=== PATIENT | female | born 1960 | race Caucasian/White ===

== ENCOUNTER 2023-03-13 07:45 | Day surgery (SDC) | payer BC ==
[2023-03-11 12:25] LABS: CREATININE 0.8 mg/dL (0.5-1.5); POTASSIUM 4.7 mmol/L (3.5-5.1)
[2023-03-11 12:35] LABS: BASOPHILS # (AUTO) 0.04 K/uL (0.00-0.20); BASOPHILS % (AUTO) 0.5 % (0.0-5.0); EOSINOPHILS # (AUTO) 0.22 K/uL (0.00-0.70); HEMATOCRIT 40.2 % (36-48); IMMATURE GRANULOCYTE ABSOLUTE 0.02 K/uL (0-1); LYMPHOCYTES # (AUTO) 2.2 K/uL (1.0-4.8); LYMPHOCYTES % (AUTO) 30.1 % (21.0-51.0); MEAN CORPUSCULAR HEMOGLOBIN 28.8 pg (27.0-33.0); MEAN CORPUSCULAR HGB CONC 33.8 g/dL (32.0-36.0); MEAN CORPUSCULAR VOLUME 85.2 fL (79-99); MONOCYTES # (AUTO) 0.7 K/uL (0.1-1.0); MONOCYTES % (AUTO) 9.5 % (3.0-13.0); NEUTROPHILS # (AUTO) 4.1 K/uL (1.8-7.7); NEUTROPHILS % (AUTO) 56.6 % (40.0-77.0); PLATELET COUNT (AUTO) 251 K/uL (130-400); RED BLOOD CELL COUNT(AUTO) 4.72 MIL/uL (4.00-5.50); RED CELL DISTRIBUTION WIDTH 12.4 % (11.0-15.5); WHITE BLOOD COUNT (AUTO) 7.3 K/uL (4.8-10.8)
[2023-03-11 13:28] VITALS: BP 137/81; PULSE 79; RESP 15
[~2023-03-13] VITALS: Ht 160 cm; Wt 72.0 kg
[2023-03-13] VITALS (18 sets, daily range): BP systolic 104–117; BP diastolic 54–82; PULSE 71–84; RESP 14–17
[~2023-03-13 07:45] MED LIST: CETI-89 PO; FEXO180T94 PO; IBUP-2077 PO; METO-408 PO; MONT-39 PO; ROSU20TA73 PO; SENN-141 PO; TIRZ12.5 SQ; [UNRECOGNIZED DRUG - OTHER]; lutein PO; vitamin d3 PO
[2023-03-13] MEDS ORDERED: ZOSYN 3.375GM+NS 50ML 50 ML ONE (08:04)
[2023-03-13] MEDS ORDERED: 0.9%NACL 1000ML 1,000 ML IV ONE (08:08)
[2023-03-13] MEDS ORDERED: FENTANYL CITRATE PF 50 MCG/1 ML 2ML VIAL ONE (09:16)
[2023-03-13] MEDS ORDERED: ONDANSETRON 4MG INJ ONE (09:16)
[2023-03-13] MEDS ORDERED: PROPOFOL 10 MG/ML 20ML VIAL IV ONE (09:16)
[2023-03-13] MEDS ORDERED: MIDAZOLAM HCL 1 MG/ML 2ML VIAL ONE (09:16)
[2023-03-13] MEDS ORDERED: ROCURONIUM 10MG/1ML SYR 10 MG/ML ML ONE (09:25)
[2023-03-13] MEDS ORDERED: EPHEDRINE SULFATE 50 MG/ML AMPULE ONE (09:36)
== END 2023-03-13 11:55 | disposition home or self-care (01) ==
LOC: DAH 07:45
PROVIDERS: ATTEND Urology
DX: N20.0 Calculus of kidney (principal); E11.9 Type 2 diabetes mellitus without complications; J45.909 Unspecified asthma, uncomplicated; Z79.899 Other long term (current) drug therapy; Z79.01 Long term (current) use of anticoagulants; Z98.890 Other specified postprocedural states; Z87.440 Personal history of urinary (tract) infections
CPT/HCPCS: 80048; 85025; 36415; 50590; 82948 ×2; A6260; A4663; J7120; J3010; J7030; J3490; J2250; J2704; J2405; J2543; A4215; A4223; A4222; A4221

== ENCOUNTER → 2023-09-25 | Outpatient (CLI) | payer BC ==
[~2023-09-25] MED LIST changes: -[UNRECOGNIZED DRUG - OTHER]
== END | disposition home or self-care (01) ==
LOC: SHCH 10:36
PROVIDERS: ATTEND Internal Medicine Cardiovascular Disease
DX: I08.1 Rheumatic disorders of both mitral and tricuspid valves (principal); I48.0 Paroxysmal atrial fibrillation; I47.0 Re-entry ventricular arrhythmia; I11.9 Hypertensive heart disease without heart failure; R00.2 Palpitations; E11.9 Type 2 diabetes mellitus without complications; E78.5 Hyperlipidemia, unspecified
CPT/HCPCS: 93306

== ENCOUNTER 2024-02-09 11:35 | Emergency (ER) | payer MEDICARE, BC ==
[~2024-02-09] VITALS: Ht 157.5 cm; Wt 68.0 kg
[~2024-02-09 11:35] MED LIST changes: -ROSU20TA73 PO; +ROSU20TA98 PO
[2024-02-09 12:04] LABS: BASOPHILS # (AUTO) 0.03 K/uL (0.00-0.20); BASOPHILS % (AUTO) 0.2 % (0.0-5.0); EOSINOPHILS # (AUTO) 0.06 K/uL (0.00-0.70); EOSINOPHILS % (AUTO) 0.4 % (0.0-8.0); HEMATOCRIT 38.1 % (36-48); IMMATURE GRANULOCYTE ABSOLUTE 0.06 K/uL (0-1); LYMPHOCYTES # (AUTO) 1.3 K/uL (1.0-4.8); LYMPHOCYTES % (AUTO) 8.5 % (21.0-51.0); MEAN CORPUSCULAR HEMOGLOBIN 28.2 pg (27.0-33.0); MEAN CORPUSCULAR HGB CONC 34.1 g/dL (32.0-36.0); MEAN CORPUSCULAR VOLUME 82.6 fL (79-99); MONOCYTES # (AUTO) 0.6 K/uL (0.1-1.0); MONOCYTES % (AUTO) 4.1 % (3.0-13.0); NEUTROPHILS # (AUTO) 13.4 K/uL (1.8-7.7); NEUTROPHILS % (AUTO) 86.4 % (40.0-77.0); PLATELET COUNT (AUTO) 306 K/uL (130-400); RED BLOOD CELL COUNT(AUTO) 4.61 MIL/uL (4.00-5.50); RED CELL DISTRIBUTION WIDTH 12.8 % (11.0-15.5); WHITE BLOOD COUNT (AUTO) 15.5 K/uL (4.8-10.8)
[2024-02-09 12:19] LABS: CREATININE 0.9 mg/dL (0.5-1.0)
[2024-02-09 12:21] LABS: APPEARANCE,URINE CLOUDY (CLEAR); BILIRUBIN,URINE NEGATIVE (NEGATIVE); COLOR,URINE YELLOW (YELLOW); GLUCOSE, URINE (UA) NEGATIVE (NEGATIVE); KETONES,URINE NEGATIVE (NEGATIVE); LEUKOCYTE ESTERASE ,URINE 500 Leu/uL (NEGATIVE); NITRATE,URINE NEGATIVE (NEGATIVE); OCCULT BLOOD,URINE LARGE (NEGATIVE); PROTEIN,URINE 30 mg/dL (NEGATIVE); UROBILINOGEN,URINE 0.2 mg/dL (0.2-1.0)
[2024-02-09] MEDS: ketOROlac 10 MG TABLET PO SCH (12:30)
[2024-02-09] MEDS: 0.9%NACL 1000ML 501 ML IV ONE (12:50)
[2024-02-09] MEDS: ketOROlac 30MG VIAL (30MG/ML) IVP ONE (12:51)
[2024-02-09 12:57] LABS: BACTERIA,URINE FEW /HPF (None Seen); CALCIUM OXALATE CRYSTALS,UR RARE /LPF (None Seen); MUCUS,URINE RARE LPF (None Seen); RBC,URINE TNTC /HPF (0-1); SQUAMOUS EPITHELIAL CELL,UR RARE /HPF (0-2); WBC,URINE 51-100 /HPF (0-1)
[2024-02-09] MEDS: ceFEPime HCL 1 GM VIAL IV ONE (15:01)
[2024-02-09] MEDS ORDERED: TAMS-1 PO (16:37)
[2024-02-09] MEDS ORDERED: AMOX1TAB16 PO (16:37)
[2024-02-09] MEDS: ketOROlac 10 MG TABLET PO ONE (16:48)
[2024-02-09] MEDS ORDERED: IBUP-2070 PO (16:51)
[2024-02-09 16:56] VITALS: BP 126/70; PULSE 92; RESP 16; TEMP 98.6; O2SAT 98
[2024-02-09] MEDS ORDERED: KETO10TA2 PO (17:33)
== END 2024-02-09 17:52 | disposition home or self-care (01) ==
LOC: EDH 11:35
DX: N39.0 Urinary tract infection, site not specified (principal); N20.0 Calculus of kidney; E11.9 Type 2 diabetes mellitus without complications; E78.00 Pure hypercholesterolemia, unspecified; I10 Essential (primary) hypertension; Z88.7 Allergy status to serum and vaccine
CPT/HCPCS: 99285; 96374; 76770; 96375; 80048; 85025; 87086; 81001; 36415; J7030; J1885; J0692

== ENCOUNTER 2024-02-12 06:53 | Day surgery (SDC) | payer MEDICARE ==
[2024-02-12] VITALS (14 sets, daily range): BP systolic 110–135; BP diastolic 64–84; PULSE 69–82; RESP 15–18; TEMP 97.5–97.8
[~2024-02-12] VITALS: Ht 157.5 cm; Wt 70.3 kg
[~2024-02-12 06:53] MED LIST changes: +AMOX1TAB16 PO; +IBUP-2070 PO; +KETO10TA2 PO; +TAMS-1 PO
[2024-02-12 08:17] LABS: BASOPHILS # (AUTO) 0.03 K/uL (0.00-0.20); BASOPHILS % (AUTO) 0.4 % (0.0-5.0); EOSINOPHILS # (AUTO) 0.33 K/uL (0.00-0.70); EOSINOPHILS % (AUTO) 4.4 % (0.0-8.0); HEMATOCRIT 37.3 % (36-48); IMMATURE GRANULOCYTE ABSOLUTE 0.03 K/uL (0-1); LYMPHOCYTES # (AUTO) 2.6 K/uL (1.0-4.8); LYMPHOCYTES % (AUTO) 33.9 % (21.0-51.0); MEAN CORPUSCULAR HEMOGLOBIN 28.1 pg (27.0-33.0); MEAN CORPUSCULAR HGB CONC 32.7 g/dL (32.0-36.0); MEAN CORPUSCULAR VOLUME 85.9 fL (79-99); MONOCYTES # (AUTO) 0.6 K/uL (0.1-1.0); MONOCYTES % (AUTO) 8.3 % (3.0-13.0); NEUTROPHILS % (AUTO) 52.6 % (40.0-77.0); PLATELET COUNT (AUTO) 310 K/uL (130-400); RED BLOOD CELL COUNT(AUTO) 4.34 MIL/uL (4.00-5.50); RED CELL DISTRIBUTION WIDTH 12.5 % (11.0-15.5); WHITE BLOOD COUNT (AUTO) 7.6 K/uL (4.8-10.8)
[2024-02-12 08:30] LABS: CREATININE 0.8 mg/dL (0.5-1.0); POTASSIUM 4.2 mmol/L (3.5-5.1)
[2024-02-12] MEDS ORDERED: METO-409 PO (08:31)
[2024-02-12] MEDS ORDERED: TIRZ15PE SQ (08:31)
[2024-02-12] MEDS ORDERED: LEVAHFA IH (08:31)
[2024-02-12] MEDS ORDERED: EVOL140P3 SQ (08:32)
[2024-02-12] MEDS: LACTATED RINGERS 1000ML 0 ML IV ONE (09:34)
[2024-02-12] MEDS: 0.9%NACL 1000ML 1,000 ML IV ONE (09:34)
[2024-02-12] MEDS: cefTRIAXone 1G VIAL ONE (09:34)
[2024-02-12] MEDS ORDERED: acetaMINOPHEN 1,000 MG/100 ML VIAL IV ONE (10:48)
[2024-02-12] MEDS ORDERED: FAMOTIDINE 20MG VIAL IV ONE (10:48)
[2024-02-12] MEDS ORDERED: LIDOCAINE PF 100MG/5ML (2%) SYRINGE 5ML ONE (11:01)
[2024-02-12] MEDS ORDERED: rocuRONium bROMide 10MG/1ML 5ML VL ONE (11:01)
[2024-02-12] MEDS ORDERED: FENTanyl CITRate PF 50 MCG/1 ML 2ML VIAL ONE (11:02)
[2024-02-12] MEDS ORDERED: proPOFol 10 MG/ML 20ML VIAL IV ONE (11:02)
[2024-02-12] MEDS ORDERED: ondanSETRON 4MG INJ ONE (11:18)
[2024-02-12] MEDS ORDERED: dexaMETHasone SOD PHOSPHATE 10MG/ML 1ML VIAL ONE (11:18)
[2024-02-12] MEDS: cefTRIAXone 1G VIAL IVPB ONE (11:20)
[2024-02-12] MEDS ORDERED: phenylEPHRINE HCL 10 MG/ML 1ML VIAL IV ONE (11:32)
[2024-02-12] MEDS ORDERED: SUGAMMADEX SODIUM 200 MG/2 ML VIAL IV ONE (11:48)
[2024-02-12] MEDS ORDERED: IOHEXOL-350 50ML VIAL IV ONE (12:01)
[2024-02-12] MEDS: PHENAZOpyridine HCL 200 MG TAB 200 MG TABLET PO ONE (13:15)
== END 2024-02-12 13:16 | disposition home or self-care (01) ==
LOC: DAH 06:53
PROVIDERS: ATTEND Urology
DX: N13.2 Hydronephrosis with renal and ureteral calculous obstruction (principal); N30.20 Other chronic cystitis without hematuria; I10 Essential (primary) hypertension; E11.9 Type 2 diabetes mellitus without complications; J45.909 Unspecified asthma, uncomplicated; Z79.84 Long term (current) use of oral hypoglycemic drugs; Z79.01 Long term (current) use of anticoagulants; Z79.899 Other long term (current) drug therapy
CPT/HCPCS: 52351; 80048; 85025; 82948; 36415; 74420; 93005; A4663; J7120; C1769; A4354; C1758; J3490 ×2; J3010; J1100; J7030; J2002; J0696 ×2; J2704; J2405; J2371; Q9967 ×2; A4358; A4215; A4223; A4213; A4222; A4221; A4510; A4600; J2003

== ENCOUNTER 2024-10-21 22:42 | Inpatient (IN) | payer MEDICARE ==
[~2024-10-21] VITALS: Ht 157.5 cm; Wt 73.0 kg
--- NOTE | 2024-10-21 04:30 | NUR ---
admit admit to room 409 via stretcher from er, patient awake alert, ox3, no sob no c./o pain, teach plan of care and expected outcome, patient verbalizes understanding via teach back
[~2024-10-21 22:42] MED LIST changes: -AMOX1TAB16 PO; +CEFD300C3 PO; +EVOL140P3 SQ; -FEXO180T94 PO; -IBUP-2070 PO; -IBUP-2077 PO; -KETO10TA2 PO; +LEVA15HF6 IH; +METO-409 PO; +MIDO5TAB4 PO; -SENN-141 PO; -TAMS-1 PO; +TAMS-55 PO; -TIRZ12.5 SQ; +TIRZ15PE SQ; -lutein PO; -vitamin d3 PO
[2024-10-21 23:10] LABS: ADD UA MICROSCOPIC YES; APPEARANCE,URINE CLEAR (CLEAR); BILIRUBIN,URINE NEGATIVE (NEGATIVE); COLOR,URINE COLORLESS (YELLOW); GLUCOSE, URINE (UA) NEGATIVE (NEGATIVE); KETONES,URINE NEGATIVE (NEGATIVE); LEUKOCYTE ESTERASE ,URINE 25 Leu/uL (NEGATIVE); NITRATE,URINE NEGATIVE (NEGATIVE); PROTEIN,URINE NEGATIVE (NEGATIVE); UROBILINOGEN,URINE 0.2 mg/dL (0.2-1.0)
[2024-10-21 23:11] LABS: MUCUS,URINE RARE LPF (None Seen); RBC,URINE 0-1 /HPF (0-1); SQUAMOUS EPITHELIAL CELL,UR RARE /HPF (0-2)
--- NOTE | 2024-10-21 23:21 | ERN ---
ED Note History of Present Illness Stated Complaint: UTI, " NOT FEELING WELL" Chief Complaint: Other Problems Time Seen by MD: 22:48 Time Seen by Midlevel: 23:00 Dictation: Ms. Weston is a 64 year old female with history of hypertension, arrhythmia, h yperlipidemia, asthma, and kidney stones who presented to the Emergency Department this evening for evaluation of general weakness. She was admitted to the ICU on 09/22 with diagnosis of severe sepsis. She was discharged to home on Cefdinir and felt well for a week or so. She has had follow up with her PCP and states that she is again being treated for UTI. She has UA with C&S report + Klebsiella pneumonia. She has had only one dose of Levaquin po. Today she has had fever, severe/persistent nausea, suprapubic pain, foul smelling urine, frequent urination, tachycardia (despite beta eduardo), and blood pressure readings that have been high and some low. She called her PCP who recommended she come to the hospital for admission/IV antibiotics. Prior to arrival she took Zofran 8mg. She is pending outpatient CT scan of the abdomen/pelvis. 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 Home Meds Active Scripts Midodrine HCl (Midodrine HCl) 5 Mg Tablet, 1 TAB PO TID for 30 Days, #90 TAB 1 Refill Prov:RE PACE MD 09/26/24 Cefdinir (Cefdinir) 300 Mg Capsule, 1 CAP PO BID for 7 Days, #14 CAP 1 Refill Prov:RE PACE MD 09/26/24 Tamsulosin HCl (Flomax) 0.4 Mg Cap.er.24h, 0.4 MG PO DAILY for 30 Days, #30 CAPSULE.DR Prov:SUMAN TABOR MD 02/09/24 Reported Medications Evolocumab (Repatha Sureclick) 140 Mg/Ml Pen.injctr, 140 MG SQ [id number] 02/12/24 Levalbuterol Tartrate (Xopenex Hfa) 45 Mcg/Actuation Hfa.aer.ad, 2 PUFF IH AD PRN for ASTHMA 02/12/24 Tirzepatide (Mounjaro) 15 Mg/0.5 Ml Pen.injctr, 15 MG SQ QWEEK 02/12/24 Metoprolol Succinate (Metoprolol Succinate) 100 Mg Tab.er.24h, 100 MG PO AM, TAB 02/12/24 Metoprolol Succinate (Metoprolol Succinate) 25 Mg Tab.er.24h, 50 MG PO HS, TAB 03/11/23 Montelukast Sodium (Montelukast Sodium) 10 Mg Tablet, 10 MG PO HS, TAB 03/11/23 Rosuvastatin Calcium (Rosuvastatin Calcium) 20 Mg Tablet, 10 MG PO AM, TAB 03/11/23 Cetirizine HCl (Zyrtec) 10 Mg Tablet, 10 MG PO HS, TAB 03/11/23 Past Medical History Past Medical History: Arrythmia, Asthma, Diabetes-Type II, High Cholesterol, Hypertension, Kidney Stone, Other Additional Past Medical Hx: SEPSIS Surgical History: Other Surgical History Other: LITHOTRIPSY, LEFT OVARY REMOVAL PSYCH History: no pertinent psych hx Family History: Negative Social History: Negative History: Not Applicable RN Note Reviewed/Agreed w/PFSH: Yes Review of System Dictation REVIEW OF SYSTEMS: CONSTITUTIONAL: Patient denies sweats and weight changes. States she just feels unwell. She reports fatigue, general weakness, chills, and fever. EYES: Patient denies any visual symptoms. EARS, NOSE, AND THROAT: No difficulties with hearing. No symptoms of rhinitis or sore throat. CARDIOVASCULAR: Patient denies chest pains, palpitations, orthopnea and paroxysmal nocturnal dyspnea. Reports tachycardia despite use of beta-eduardo. Reports having both high and low blood pressure readings. RESPIRATORY: No dyspnea on exertion, no wheezing or cough. GI: Novomiting, diarrhea, constipation, abdominal pain, hematochezia or melena. Reports severe nausea. States she took Zofran 8 mg at 9:00 p.m. : No urinary hesitancy or dribbling. Reports frequent urination. Reports suprapubic pain. Reports right flank pain. States she is currently under treatment for UTI; culture positive Klebsiella pneumoniae. She has had one dose of Levaquin. MUSCULOSKELETAL: No myalgias or arthralgias. NEUROLOGIC: No chronic headaches, no seizures. Patient denies numbness, tingling or weakness. PSYCHIATRIC: Patient denies problems with mood disturbance. No problems with anxiety. ENDOCRINE: No excessive urination or excessive thirst. DERMATOLOGIC: Patient denies any rashes or skin changes. Initial Vital Sign VS Vital Signs Date Time Temp Pulse Resp B/P (MAP) Pulse Ox O2 Delivery O2 Flow Rate FiO2 10/21/24 22:43 97.2 108 20 167/97 96 Room Air 10/21/24 22:59 0 21 Physical Exam Dictation Vital signs: Reviewed. Afebrile Constitutional: No acute distress. Non-toxic appearing. Significant other at bedside Head/Face: Normocephalic, atraumatic. Eyes: Periorbital areas with no swelling, redness, or edema. Lids and lashes are normal. Conjunctival injection is absent. Sclera anicteric. Pupils equal, round, reactive to light. ENT: Pinnas intact and no signs of trauma or erythema. Ear canals clear and no discharge. TMs no erythema. No nasal discharge or bleeding noted. Oropharynx with no exudate, redness, swelling, masses, exudates, or evidence of obstruction. Uvula midline. Mucous membranes moist. Neck: Trachea midline, no masses palpated, and no cervical lymphadenopathy. No swelling. Supple, full range of motion. Chest/Axilla: No tenderness, no crepitus, no paradoxical movement, no retractions. Cardiovascular: Regular rate, regular rhythm, no murmur, no gallops. Symmetric pulses. No peripheral edema. alarm security or surveillance monitor reflects a sinus tachycardia; rate 107. Normotensive. Respiratory: Respirations even and unlabored. Lung sounds clear; no wheezes, rales or rhonchi. Room air SpO2 98%. Gastrointestinal: Inspection is normal. No distention is appreciated. Bowel sounds are normal. No mass or organomegaly . There is no tenderness. No rebound. No rigidity. No voluntary or involuntary guarding. No Thorpe's sign. : negative CVA tenderness bilaterally. + Suprapubic pain. Urine with foul odor. Neurological: Normal speech, gross motor function intact, gross sensory f unction intact. No focal weakness/Paresthesia. Musculoskeletal/Extremities: All extremities have full range of motion, no pain or tenderness on palpation. Symmetric pulses. Integumentary: Intact. Skin is normal color, warm and dry. Cap refill less than 2 seconds. Results (Laboratory/Radiology) Laboratory/Radiology Laboratory Tests Test 10/21/24 22:48 10/21/24 23:30 10/21/24 23:38 Urine Color COLORLESS (YELLOW) Urine Appearance CLEAR (CLEAR) Urine pH 7.0 (5.0-8.0) Urine Specific [place] 1.005 (1.001-1.031) Urine Protein NEGATIVE mg/dL (NEGATIVE) Urine Glucose (UA) NEGATIVE mg/dL (NEGATIVE) Urine Ketones NEGATIVE mg/dL (NEGATIVE) Urine Occult Blood +- (TRACE) (NEGATIVE) H Urine Nitrate NEGATIVE (NEGATIVE) Urine Bilirubin NEGATIVE mg/dL (NEGATIVE) Urine Urobilinogen 0.2 mg/dL (0.2-1.0) Urine Leukocyte Esterase 25 Jose Angel/uL (NEGATIVE) H Urine RBC 0-1 /HPF (0-1) Urine WBC 2-5 /HPF (0-1) H Urine Squamous Epithelial Cells RARE /HPF (0-2) Urine Bacteria None /HPF (None Seen) White Blood Count 9.8 K/uL (4.8-10.8) Red Blood Count 4.57 MIL/uL (4.00-5.50) Hemoglobin 13.4 g/dL (12.0-16.0) Hematocrit 39.3 % (36-48) Mean Corpuscular Volume 86.0 fL (79-99) Mean Corpuscular Hemoglobin 29.3 pg (27.0-33.0) Mean Corpuscular Hemoglobin Concent 34.1 g/dL (32.0-36.0) Red Cell Distribution Width 12.1 % (11.0-15.5) Platelet Count 193 K/uL (130-400) Mean Platelet Volume 9.2 fL (7.5-10.5) Immature Granulocyte % (Auto) 0.3 % (0-1) Neutrophils (%) (Auto) 80.7 % (40.0-77.0) H Lymphocytes (%) (Auto) 13.9 % (21.0-51.0) L Monocytes (%) (Auto) 4.1 % (3.0-13.0) Eosinophils (%) (Auto) 0.8 % (0.0-8.0) Basophils (%) (Auto) 0.2 % (0.0-5.0) Neutrophils # (Auto) 7.9 K/uL (1.8-7.7) H Lymphocytes # (Auto) 1.4 K/uL (1.0-4.8) Monocytes # (Auto) 0.4 K/uL (0.1-1.0) Eosinophils # (Auto) 0.08 K/uL (0.00-0.70) Basophils # (Auto) 0.02 K/uL (0.00-0.20) Absolute Immature Granulocyte (auto 0.03 K/uL (0-1) Nucleated Red Blood Cells 0.0 % (0.0-0.19) Sodium Level 141 mmol/L (136-145) Potassium Level 4.1 mmol/L (3.5-5.1) Chloride Level 104 mmol/L (101-111) Carbon Dioxide Level 29 mmol/L (21-32) Blood Urea Nitrogen 13 mg/dL (7-18) Creatinine 0.7 mg/dL (0.5-1.0) Glomerular Filtration Rate Calc 96 mL/min (>90) Random Glucose 112 mg/dL (70-105) H Lactic Acid Level 1.3 mmol/L (0.8-2.5) Total Calcium 9.4 mg/dL (8.5-10.1) Total Bilirubin 0.5 mg/dL (0.2-1.0) Direct Bilirubin 0.1 mg/dL (0.0-0.3) Aspartate Amino Transf (AST/SGOT) 17 U/L (10-37) Alanine Aminotransferase (ALT/SGPT) 31 U/L (12-78) Alkaline Phosphatase 83 U/L (50-136) Troponin I High Sensitivity 4 ng/L (4-50) B-Type Natriuretic Peptide < 5 pg/mL (0-100) Total Protein 7.7 g/dL (6.0-8.3) Albumin 4.0 g/dL (3.5-5.0) Influenza Type A Antigen Negative For Type A Influenza Type B Antigen Negative For Type B SARS-CoV-2, RNA, NAAT NEGATIVE SARS CoV-2 Labs Reviewed?: Yes ED Course ED Course Orders Procedure Category Date Status Time Lactic Acid LAB 10/21/24 Complete 22:59 Blood Cult ALESIA 10/21/24 Logged 22:59 Cbc With Differential LAB 10/21/24 Complete 22:59 Basic Metabolic Panel LAB 10/21/24 Complete 22:59 Hepatic Function Panel LAB 10/21/24 Complete 22:59 Urinalysis Profile LAB 10/21/24 Complete 22:59 Troponin I High LAB 10/21/24 Complete Sensitivity 22:59 B-Type Natriuretic LAB 10/21/24 Complete Peptide 22:59 Influenza Type A & B, LAB 10/21/24 Complete Rapid 23:14 Covid Rna Naat LAB 10/21/24 Complete 23:14 Urinalysis Profile LAB 10/21/24 Logged 23:14 Ct Abdomen/Pelvis W/O CT 10/22/24 Taken Contrast 00:26 0.9%Nacl 1000ml (Ns PHA 10/22/24 Complete 1000ml) 00:30 Zosyn 3.375gm+Ns 50ml PHA 10/22/24 Complete (Zosyn 3.375gm+Ns 02:00 Current Medications Medications (Trade) Dose Ordered Sig/Timoteo Route PRN Reason Start Time Stop Time Status Last Admin Dose Admin Piperacillin Sod/ Tazobactam Sod (Zosyn 3.375gm+NS 50ml) 3.375 gm ONCE ONCE IV 10/22/24 02:00 10/22/24 02:01 DC Sodium Chloride 1,000 ml @ 0 mls/hr ONCE ONCE IV 10/22/24 00:30 10/22/24 00:31 DC 10/22/24 00:34 Vital Signs Date Time Temp Pulse Resp B/P (MAP) Pulse Ox O2 Delivery O2 Flow Rate FiO2 10/22/24 01:18 98.4 95 20 127/84 98 Room Air* 0 21 10/21/24 22:59 110 20 146/87 98 Room Air* 0 21 10/21/24 22:43 97.2 108 20 167/97 96 Room Air On arrival to the ED noted tachycardia with heart rate 108-110; normotensive and afebrile with room air SpO2 96-98%. Vital signs are stable. CT scan of the abdomen and pelvis revealed right-sided nonobstructing kidney stone as well as 3 cm cyst to liver. Laboratory findings as noted below. No elevation of lactic acid or WBCs. Glucose 112, troponin negative. COVID and influenza negative. UA + blood, leukocyte esterase, and UWBC 2-5. UCX/BCX pending. While in the ED she received dose Zosyn as well as NS 1000ml IV as bolus. HR decreased to 100. Normotensive. Patient continues to complain of nausea without further emesis. Findings were discussed with DOMINIK Romero who accepts for observation admission to the Hospitalist. Medical Decision Making MDM MDM: Differential diagnosis: Sepsis, UTI, kidney stone Rationale: Tests considered and ordered secondary to shared decision making include: labs, ECG and radiology Previous outside records reviewed: Old ER visits. Risk of complication and/or morbidity or mortality of patient management: None Medications-Per medication reconciliation Need for hospitalization: Patient does meet criteria for hospitalization. Need for emergency major/minor surgery: No There are no social concerns with this patient. Prescription drug management Prescriptions will include symptomatic care Patient's prior external medical records from other ER visits were reviewed by me as indicated. Prior testing and results from previous visits were reviewed. Prior tests were taken into account with medical decision making and resource utilization, independent historian/historians were used to obtain complete medical history. I independently interpreted the test that were performed, results were reviewed by me and considered findings on radiology if ordered. Medical management and examination interpretation discussions were had by me with other qualified healthcare professionals as indicated for the patient's care. DX & DISP Disposition: Observation Departure Impression: Primary Impression: UTI (urinary tract infection) Additional Impressions: Nausea, Tachycardia, Kidney stone on right side Condition: Stable Assign Patient to: Dr. Kamari Pierce Referrals: DANIEL ISAACS NP (PCP) JANETTE DENNIS NP Oct 21, 2024 23:21
[2024-10-21 23:45] LABS: BASOPHILS # (AUTO) 0.02 K/uL (0.00-0.20); BASOPHILS % (AUTO) 0.2 % (0.0-5.0); EOSINOPHILS # (AUTO) 0.08 K/uL (0.00-0.70); EOSINOPHILS % (AUTO) 0.8 % (0.0-8.0); HEMATOCRIT 39.3 % (36-48); IMMATURE GRANULOCYTE ABSOLUTE 0.03 K/uL (0-1); LYMPHOCYTES # (AUTO) 1.4 K/uL (1.0-4.8); LYMPHOCYTES % (AUTO) 13.9 % (21.0-51.0); MEAN CORPUSCULAR HEMOGLOBIN 29.3 pg (27.0-33.0); MEAN CORPUSCULAR HGB CONC 34.1 g/dL (32.0-36.0); MONOCYTES # (AUTO) 0.4 K/uL (0.1-1.0); MONOCYTES % (AUTO) 4.1 % (3.0-13.0); NEUTROPHILS # (AUTO) 7.9 K/uL (1.8-7.7); NEUTROPHILS % (AUTO) 80.7 % (40.0-77.0); PLATELET COUNT (AUTO) 193 K/uL (130-400); RED BLOOD CELL COUNT(AUTO) 4.57 MIL/uL (4.00-5.50); RED CELL DISTRIBUTION WIDTH 12.1 % (11.0-15.5); WHITE BLOOD COUNT (AUTO) 9.8 K/uL (4.8-10.8)
[2024-10-21 23:56] LABS: CREATININE 0.7 mg/dL (0.5-1.0); POTASSIUM 4.1 mmol/L (3.5-5.1)
[2024-10-21 23:58] LABS: SARS-CoV-2, RNA, NAAT NEGATIVE SARS CoV-2 (NEGATIVE)
[2024-10-22 00:03] LABS: INFLUENZA TYPE A Negative For Type A (NEGATIVE); INFLUENZA TYPE B Negative For Type B (NEGATIVE)
[2024-10-22 00:09] LABS: B-TYPE NATRIURETIC PEPTIDE < 5 pg/mL (0-100); BILIRUBIN,DIRECT 0.1 mg/dL (0.0-0.3); BILIRUBIN,TOTAL 0.5 mg/dL (0.2-1.0); TOTAL PROTEIN, SERUM 7.7 g/dL (6.0-8.3)
[2024-10-22] MEDS: 0.9%NACL 1000ML 1,000 ML IV ONE (00:34)
[2024-10-22] MEDS: ZOSYN 3.375GM +NS 50ML IV ONE (03:00)
--- NOTE | 2024-10-22 03:43 | HP ---
History of Present Illness Reason for Visit: congestion History of Present Illness Ms. Weston is a 64-year-old female that was seen and examined today on 10/22/2024. Patient is a good historian of personal health. As per previous admission patient's Aroldo is at bedside. According to patient she came to the emergency department with a chief complaint of congestion. Onset was 1900. Location was to nose. Duration is on and off. Character is described as I have any stuffy nose. There was no alleviating factors. The patient believes symptoms may have been aggravated by levofloxacin which she took secondary to a urinary tract infection diagnosed in the outpatient setting by her PCP. Patient has a culture and sensitivity report in her hands from the outpatient setting that shows Klebsiella pneumonia ESBL resistant to PCN, cephalosporins, aztreonam. Organism is also resistant to Bactrim. Intermediate resistance to nitrofurantoin. For this reason emergency room physician recommended patient be admitted with a diagnosis of complicated UTI. There is sensitivity to levofloxacin Past Medical History Patient History: Carcinomas MOTHER, (RENAL) Cardiovascular disease MOTHER, (WPW SYNDROME) FATHER, Diabetes mellitus FATHER, Hypertension FATHER, SISTER ADDITIONAL PAST MEDICAL HISTORY: [Diabetes mellitius type2, hypertension, hyperlipidemia] SOCIAL HISTORY: [] Negative for smoking, alcohol use, drug use. Patient lives with the . Patient is typically independent of all her ADLs. SURGICAL HISTORY: [Laser lithotripsy, left oophorectomy] Review of Systems General: No Fever, No Chills, No Night Sweats, No Fatigue, No Malaise, No Appetite, No Other HEENT: No Head Aches, No Visual Changes, No Eye Pain, No Ear Pain, No Dysphasia; Sinus Congestion; No Post Nasal Drip, No Sore Throat, No Other Pulmonary: No Dyspnea, No Cough, No Pleuritic Chest Pain, No Other Cardiovascular: No: Chest Pain, Palpitations, Orthopnea, Paroxysmal Noc. Dyspnea, Edema, Lt Headedness, Other Gastrointestinal: No: Nausea, Vomiting, Abdominal Pain, Diarrhea, Constipation, Melena, Hematochezia, Other Genitourinary: No Dysuria, No Frequency, No Incontinence, No Hematuria, No Retention, No Other Musculoskeletal: No: other, neck pain, shoulder pain, arm pain, back pain, hand pain, leg pain, foot pain Skin: No Urticaria, No Rash, No Other Neurological: No: Weakness, Numbness, Incoordination, Change in speech, Confusion, Seizures, Other Allergies: Coded Allergies: Tetanus Vaccines and Toxoid (Unverified Allergy, Unknown, 03/11/23) aloe (Unverified Allergy, Unknown, 03/11/23) Scheduled Cefdinir (Cefdinir), 1 CAP PO BID Cetirizine HCl (Zyrtec), 10 MG PO HS, (Reported) Evolocumab (Repatha Sureclick), 140 MG SQ O1OTGIC, (Reported) Metoprolol Succinate (Metoprolol Succinate), 50 MG PO HS, (Reported) Metoprolol Succinate (Metoprolol Succinate), 100 MG PO AM, (Reported) Midodrine HCl (Midodrine HCl), 1 TAB PO TID Montelukast Sodium (Montelukast Sodium), 10 MG PO HS, (Reported) Rosuvastatin Calcium (Rosuvastatin Calcium), 10 MG PO AM, (Reported) Tamsulosin HCl (Flomax), 0.4 MG PO DAILY Tirzepatide (Mounjaro), 15 MG SQ QWEEK, (Reported) Scheduled PRN Levalbuterol Tartrate (Xopenex Hfa), 2 PUFF IH AD PRN for ASTHMA, (Reported) Exam Vital Signs Vital Signs Date Time Temp Pulse Resp B/P (MAP) Pulse Ox O2 Delivery O2 Flow Rate FiO2 10/22/24 01:18 98.4 95 20 127/84 98 Room Air* 0 21 General Appearance: Alert, Oriented X3, Cooperative, No acute distress HEENT: Atraumatic, EOMI Respiratory: Clear to auscultation, Normal air movement, NL respiratory effort Cardiovascular: Regular rate, Regular rhythm, Normal S1, Normal S2 Abdominal: Normal bowel sounds, Soft, No tenderness Extremities: No edema Skin: No significant lesion Neuro: Normal speech, Strength at 5/5 X4 ext, Sensation intact, Cranial nerves 3-12 NL Psych/Mental Status: Mental status NL, Mood NL, Thoughts/Content NL Assessment/Plan ASSESSMENT: [ Complicated urinary tract infection, Klebsiella pneumonia, ESBL, resume to PCN, cephalosporin, aztreonam, POA Diabetes mellitius type2 Hypertension Hyperlipidemia] PLAN: [ Admit patient to medical floor as inpatient status. Urinary tract infection: Check urine culture, follow up with the results. Empiric antibiotic therapy with Zosyn. Diabetes mellitus type 2: Check hemoglobin A1c in a.m. Glucometer checks a.c. and HS 1800 ADA diet Humulin R sliding scale Hypertension, hyperlipidemia: At time of admission home medications not been reconciled. Consider resuming home medications once they have been reconciled. For now: Hydralazine 10 mg IV every 4 hours for systolic blood pressure greater than 160 mmHg Atorvastatin 40 mg by mouth once daily GI prophylaxis, famotidine DVT prophylaxis, Lovenox ADVANCED CARE PLANNING 1. Which of the following were discussed? Hospice Care - Yes Therapeutic options - yes Advance Directives - Yes - patient does not have any advance directives in place at this time, however has been can make decisions for her if she becomes unable. Other discussions - patient wishes to remain a full code at this time 2. Discussed with who? Patient 3. Voluntary nature of this service was explained to the patient? Yes 4. Amount of time spent - ___16 minutes____ 5. Reviewed by Physician? (if this service was performed by NPP) Yes This document was generated in part using voice recognition software, occasional wrong word or sound alike substitutions may have occurred due to the inherent limitations of voice recognition software. Read the chart carefully and recognize using context, where the substitutions have occurred. Although every effort was made to edit the content, medical transcription and typing errors may occur ATTESTATION BY PHYSICIAN I have seen and examined the patient. I reviewed the documentation, medical decision making, and treatment plan as noted by the mid-level provider above. I agree with the findings and plan of care. ANDREW LYONS [facility] Oct 22, 2024 03:43
[2024-10-22] MEDS ORDERED: 0.9%NACL 50ML IV SCH (04:00)
[2024-10-22] MEDS ORDERED: hydrALAZine 20MG/ML VIAL IV PRN (04:00)
[2024-10-22 04:30] VITALS: BP 154/90; PULSE 92; RESP 20; TEMP 97.7
[2024-10-22] MEDS ORDERED: morPHINE 2 MG SYG IVP PRN (04:30)
[2024-10-22 05:34] LABS: BASOPHILS # (AUTO) 0.02 K/uL (0.00-0.20); BASOPHILS % (AUTO) 0.2 % (0.0-5.0); EOSINOPHILS # (AUTO) 0.14 K/uL (0.00-0.70); EOSINOPHILS % (AUTO) 1.5 % (0.0-8.0); HEMATOCRIT 39.2 % (36-48); IMMATURE GRANULOCYTE ABSOLUTE 0.03 K/uL (0-1); LYMPHOCYTES # (AUTO) 2.6 K/uL (1.0-4.8); LYMPHOCYTES % (AUTO) 28.7 % (21.0-51.0); MEAN CORPUSCULAR HEMOGLOBIN 28.9 pg (27.0-33.0); MEAN CORPUSCULAR HGB CONC 33.4 g/dL (32.0-36.0); MEAN CORPUSCULAR VOLUME 86.5 fL (79-99); MONOCYTES # (AUTO) 0.7 K/uL (0.1-1.0); MONOCYTES % (AUTO) 8.1 % (3.0-13.0); NEUTROPHILS # (AUTO) 5.5 K/uL (1.8-7.7); NEUTROPHILS % (AUTO) 61.2 % (40.0-77.0); PLATELET COUNT (AUTO) 188 K/uL (130-400); RED BLOOD CELL COUNT(AUTO) 4.53 MIL/uL (4.00-5.50); RED CELL DISTRIBUTION WIDTH 12.1 % (11.0-15.5)
[2024-10-22 05:54] LABS: CREATININE 0.7 mg/dL (0.5-1.0); MAGNESIUM 1.8 mg/dL (1.80-2.40); PHOSPHORUS 3.3 mg/dL (2.5-4.9); POTASSIUM 4.1 mmol/L (3.5-5.1)
--- NOTE | 2024-10-22 05:54 | HMCIMG ---
CT ABDOMEN/PELVIS W/O CONTRAST HISTORY: Renal stone COMPARISON: None TECHNIQUE: Multiple sequential axial images of the abdomen and pelvis were obtained from the dome of the diaphragm through symphysis pubis. Patient was not given contrast through intravenous route. Oral contrast was not given. FINDINGS: No pleural effusion is seen bilaterally. There is no evidence of parenchymal disease or pulmonary nodule of the visualized lower lungs. Degenerative changes of the thoracolumbar spine are present. The heart is not enlarged. Coronary artery calcifications are seen. There is grade 2 anterolisthesis at L5-S1 level with disc space narrowing. Liver measures 18 cm. Multiple hepatic cysts is seen with the largest measuring 3.3 cm in the right hepatic lobe. The liver, spleen, adrenal glands and pancreas are unremarkable. There is no evidence of hydronephrosis bilaterally. There is 5 mm right renal pelvis stone. Fecal material is seen in the colon. There are normal size retroperitoneal and mesenteric lymph nodes. No ascites is seen. No CT evidence of acute appendicitis is seen. Pelvic sidewalls are symmetric bilaterally. The bladder is poorly distended. IMPRESSION: 1. No hydronephrosis. 5 mm right renal pelvic stone. No ascites. Hepatic cysts. CT was performed with one or more following dose reduction techniques: automated exposure control, adjustment of the mA and kv according to patient's size, or use of a iterative reconstruction technique.
[2024-10-22 08:00] VITALS: BP_SYST 131; BP_DIAS 157; BP_DIAS 79; PULSE 90; RESP 16; TEMP 97.7; O2SAT 99
[2024-10-22] MEDS: ENOXAPARIN SODIUM 40 MG/0.4 ML SYRINGE SQ SCH (09:00)
[2024-10-22] MEDS: FAMOTIDINE 20MG TAB PO SCH (09:04)
[2024-10-22] MEDS ORDERED: MAGNESIUM 2GM PREMIX 50ML 50 ML IV PRN (09:30)
[2024-10-22] MEDS: MAGNESIUM 2GM PREMIX 50ML 50 ML IV ONE (09:33)
[2024-10-22] MEDS ORDERED: ZOSYN 3.375GM +NS 50ML IVPB SCH (10:00)
[2024-10-22 10:14] LABS: APPEARANCE,URINE CLEAR (CLEAR); BILIRUBIN,URINE NEGATIVE (NEGATIVE); COLOR,URINE COLORLESS (YELLOW); GLUCOSE, URINE (UA) NEGATIVE (NEGATIVE); KETONES,URINE NEGATIVE (NEGATIVE); LEUKOCYTE ESTERASE ,URINE 75 Leu/uL (NEGATIVE); NITRATE,URINE NEGATIVE (NEGATIVE); OCCULT BLOOD,URINE NEGATIVE (NEGATIVE); PH,URINE 6.5 (5.0-8.0); PROTEIN,URINE NEGATIVE (NEGATIVE); UROBILINOGEN,URINE 0.2 mg/dL (0.2-1.0)
[2024-10-22] MEDS: ondanSETRON 4MG INJ IV PRN (10:22)
[2024-10-22 10:23] LABS: ADD UA MICROSCOPIC YES; BACTERIA,URINE RARE /HPF (None Seen); RBC,URINE 0-1 /HPF (0-1); SQUAMOUS EPITHELIAL CELL,UR RARE /HPF (0-2)
[2024-10-22] MEDS ORDERED: FEXO180T94 PO (10:36)
[2024-10-22] MEDS ORDERED: SENN8.6T32 PO (10:36)
[2024-10-22] MEDS ORDERED: DOCU100T PO (10:36)
[2024-10-22] MEDS ORDERED: FAMO20TA8 PO (10:36)
[2024-10-22] MEDS ORDERED: DOCU100C33 PO (10:36)
[2024-10-22] MEDS ORDERED: TAMS-55 PO (10:36)
[2024-10-22] MEDS ORDERED: METO-391 PO ×2 (10:36)
[2024-10-22 12:00] VITALS: BP 137/81; PULSE 90; RESP 15; TEMP 99
[2024-10-22] MEDS ORDERED: PHARMACY COMMUNICATION MISC SCH (12:00)
[2024-10-22] MEDS: MEROPENEM 1GM 1 GM VIAL IVPB SCH (12:35)
[2024-10-22 16:00] VITALS: BP 123/72; PULSE 93; RESP 15; TEMP 98.4
--- NOTE | 2024-10-22 16:00 | NUR ---
DCP: INITIAL ASSESSMENT READMISSION: Last discharge from hospital was on 09/26/24. Patient lives with spouse, Darvin Belcher. She has no home services or DME. Patient is able to complete ADLs independently and drives. She works part-time. PCP is DOMINIK Burrell. Pharmacy is [facility] in [place]. Patient voiced no safety concerns regarding returning home and states she has no difficulty with housing or buying food. DCP is home. Addendum: 10/22/24 at 1602 by LATIA ISRAEL SS Amended: Links added.
[2024-10-22 19:00] VITALS: BP 142/80; PULSE 86; RESP 20; TEMP 97.9
--- NOTE | 2024-10-22 20:29 | PN ---
[facility] PROGRESS NOTE Date of Service: Oct 22, 2024 Time of Service: 20:28 SUBJECTIVE: [ ] 10/22/24 Patient seen and examined/feels slightly better/needed zofran/will change Zosyn to Merrem REVIEW OF SYSTEMS CONSTITUTIONAL: Denies fevers, chills, or night sweats. No unintentional weight loss reported. NEUROLOGICAL: Denies headache, amaurosis fugax, motor weakness, sensory deficit, vertigo/spinning sensation, gait abnormalities, or tremors. ENT: No hearing loss, otalgia, otorrhea, rhinitis, rhinorrhea, hoarseness, or sore throat. CARDIOVASCULAR: Denies any exertional angina, dyspnea on exertion, orthopnea, paroxysmal nocturnal dyspnea, palpitations, life-threatening arrhythmias, claudication. PULMONARY: Denies any shortness of breath, cough, phlegm/sputum, hemoptysis, pleuritic chest pain. SLEEP: Denies morning headaches, daytime somnolence or napping. Denies difficulty falling asleep, staying asleep, waking from sleep. Denies knowledge of snoring. GASTROINTESTINAL: Denies any type of dysphagia to either liquids or solids. Denies nausea, vomiting, pyrosis, early satiety, abdominal pain, diarrhea, constipation, or changes in stool consistency or caliber. Denies coffee-ground emesis, hematemesis, hematochezia, or melanotic stools. GENITOURINARY: Denies frequency, urgency, nocturia, hematuria or incontinence (Storage/Irritative symptoms.) Low urinary stream, straining to void, urinary intermittency or hesitancy, splitting of the voiding stream, terminal dribbling. ENDOCRINOLOGIC: Denies polyuria, polydipsia, polyphagia or heat/cold intolerances. HEMATOLOGIC: Denies thrombophilia/previous clots, or coagulopathy/bleeding disorders. ONCOLOGIC: Denies personal history of malignancy. DERMATOLOGIC: Denies rashes or pruritus. PSYCHIATRIC: Denies any suicidal or homicidal ideation. Denies hallucinations. PHYSICAL EXAM GENERAL APPEARANCE: The patient is awake, alert, and oriented, in no acute cardiopulmonary distress. NEUROLOGICAL: Cranial nerves II-XII grossly intact. Motor is 5/5 in bilateral upper and lower extremities proximal to distal. No sensory deficits. HEENT: Face is symmetric. Pupils are equal and reactive. Extraocular movements are intact. NECK: Supple. No JVD. No thyromegaly. No submental, submandibular, pre- /postauricular, occipital or supraclavicular lymphadenopathy. CHEST: Normal chest expansion. No Telemetry. LUNGS: Absence of any rales, rhonchi or any wheezing. CARDIOVASCULAR: Regular. S1 and S2 normal. No appreciable rubs, murmurs or gallops. ABDOMEN: Soft, nontender, and nondistended. There is no rebound, voluntary guarding, or rigidity. : Deferred. No Mcdaniel. EXTREMITIES: Non-edematous and not cyanotic. No clubbing. Good capillary refill. SKIN: No skin breakdown. Vital Signs (last 8hr) Date Time Temp Pulse Resp B/P (MAP) Pulse Ox O2 Delivery O2 Flow Rate FiO2 10/22/24 16:00 98.4 93 15 123/72 96 Room Air LABS: Laboratory: Test 10/22/24 10:03 10/22/24 05:20 10/21/24 23:38 10/21/24 23:30 Range/Units Urine Color COLORLESS YELLOW Urine Appearance CLEAR CLEAR Urine pH 6.5 5.0-8.0 Urine Specific [place] 1.009 1.001-1.031 Urine Protein NEGATIVE NEGATIVE mg/dL Urine Glucose (UA) NEGATIVE NEGATIVE mg/dL Urine Ketones NEGATIVE NEGATIVE mg/dL Urine Occult Blood NEGATIVE NEGATIVE Urine Nitrate NEGATIVE NEGATIVE Urine Bilirubin NEGATIVE NEGATIVE mg/dL Urine Urobilinogen 0.2 0.2-1.0 mg/dL Urine Leukocyte Esterase 75 H NEGATIVE Jose Angel/uL Urine RBC 0-1 0-1 /HPF Urine WBC 6-10 H 0-1 /HPF Urine Squamous Epithelial Cells RARE 0-2 /HPF Urine Bacteria RARE None Seen /HPF White Blood Count 9.0 4.8-10.8 K/uL Red Blood Count 4.53 4.00-5.50 MIL/uL Hemoglobin 13.1 12.0-16.0 g/dL Hematocrit 39.2 36-48 % Mean Corpuscular Volume 86.5 79-99 fL Mean Corpuscular Hemoglobin 28.9 27.0-33.0 pg Mean Corpuscular Hemoglobin Concent 33.4 32.0-36.0 g/dL Red Cell Distribution Width 12.1 11.0-15.5 % Platelet Count 188 130-400 K/uL Mean Platelet Volume 9.2 7.5-10.5 fL Immature Granulocyte % (Auto) 0.3 0-1 % Neutrophils (%) (Auto) 61.2 40.0-77.0 % Lymphocytes (%) (Auto) 28.7 21.0-51.0 % Monocytes (%) (Auto) 8.1 3.0-13.0 % Eosinophils (%) (Auto) 1.5 0.0-8.0 % Basophils (%) (Auto) 0.2 0.0-5.0 % Neutrophils # (Auto) 5.5 1.8-7.7 K/uL Lymphocytes # (Auto) 2.6 1.0-4.8 K/uL Monocytes # (Auto) 0.7 0.1-1.0 K/uL Eosinophils # (Auto) 0.14 0.00-0.70 K/uL Basophils # (Auto) 0.02 0.00-0.20 K/uL Absolute Immature Granulocyte (auto 0.03 0-1 K/uL Nucleated Red Blood Cells 0.0 0.0-0.19 % Sodium Level 141 136-145 mmol/L Potassium Level 4.1 3.5-5.1 mmol/L Chloride Level 106 101-111 mmol/L Carbon Dioxide Level 24 21-32 mmol/L Blood Urea Nitrogen 10 7-18 mg/dL Creatinine 0.7 0.5-1.0 mg/dL Glomerular Filtration Rate Calc 96 >90 mL/min Random Glucose 98 70-105 mg/dL Total Calcium 9.1 8.5-10.1 mg/dL Phosphorus Level 3.3 2.5-4.9 mg/dL Magnesium Level 1.80 1.80-2.40 mg/dL Influenza Type A Antigen Negative For Type A NEGATIVE Influenza Type B Antigen Negative For Type B NEGATIVE SARS-CoV-2, RNA, NAAT NEGATIVE SARS CoV-2 NEGATIVE Lactic Acid Level 1.3 0.8-2.5 mmol/L Total Bilirubin 0.5 0.2-1.0 mg/dL Direct Bilirubin 0.1 0.0-0.3 mg/dL Aspartate Amino Transf (AST/SGOT) 17 10-37 U/L Alanine Aminotransferase (ALT/SGPT) 31 12-78 U/L Alkaline Phosphatase 83 50-136 U/L Troponin I High Sensitivity 4 4-50 ng/L B-Type Natriuretic Peptide < 5 0-100 pg/mL Total Protein 7.7 6.0-8.3 g/dL Albumin 4.0 3.5-5.0 g/dL Current Medications Medications (Trade) Dose Ordered Sig/Timoteo Route PRN Reason Start Time Stop Time Status Last Admin Dose Admin Acetaminophen (TYLenol 325MG TAB) 650 mg Q6H PRN PO TEMPERATURE GREATER THAN 101.5 10/22/24 04:00 11/21/24 03:59 Atorvastatin Calcium (LIPItor 40MG) 40 mg HS PO 10/22/24 21:00 11/21/24 20:59 Enoxaparin Sodium (Lovenox) 40 mg DAILY SQ 10/22/24 09:00 11/21/24 08:59 Famotidine (Pepcid 20mg Tab) 20 mg DAILY PO 10/22/24 09:00 11/21/24 08:59 10/22/24 09:04 20 MG Hydralazine HCl (APRESOLine 20MG INJ) 10 mg Q6H PRN IV For:SBP above 160;DBP above 90 10/22/24 04:00 11/21/24 03:59 Magnesium Sulfate 50 ml @ 0 mls/hr PROTOCOL PRN IV mag 10/22/24 09:30 11/21/24 09:29 Meropenem (Merrem 1gm) 1 gm Q8H IVPB 10/22/24 12:00 11/01/24 11:59 10/22/24 12:35 1 GM Morphine Sulfate (morPHINE 2MG SYG) 2 mg Q4H PRN IVP SEVERE PAIN (7-10) 10/22/24 04:30 10/29/24 04:29 Ondansetron HCl (zoFRAN 4MG INJ) 4 mg Q6H PRN IV NAUSEA/VOMITING 10/22/24 04:00 11/21/24 03:59 10/22/24 10:22 4 MG Pharmacy Profile Note (Pharmacy Communication) 1 each ONCE MISC 10/22/24 12:00 10/22/24 11:38 DC Piperacillin Sod/ Tazobactam Sod (Zosyn 3.375gm+NS 50ml) 3.375 gm Q8H IVPB 10/22/24 10:00 10/22/24 11:37 DC Sodium Chloride (NS 50ml) 50 ml AD IV 10/22/24 04:00 10/22/24 09:21 DC DIAGNOSTICS / RADIOLOGY: [ ] ASSESSMENT: [ ] PLAN: [ ] JENNIE CARRASQUILLO MD Oct 22, 2024 20:29
[2024-10-22] MEDS: atorVAStatin 40 MG TABLET PO SCH (20:38)
--- NOTE | 2024-10-22 21:15 | NUR ---
transfer patient c/o room being to cold, several attempts to to adjust theromostat unsucessful transferred patient to room 412,[facility] deana sheridan
[2024-10-23] VITALS (7 sets, daily range): BP systolic 127–131; BP diastolic 75–91; PULSE 77–104; RESP 16–20; TEMP 97.7–98.3; O2SAT 98
[2024-10-23 04:57] LABS: BASOPHILS # (AUTO) 0.02 K/uL (0.00-0.20); BASOPHILS % (AUTO) 0.3 % (0.0-5.0); EOSINOPHILS # (AUTO) 0.16 K/uL (0.00-0.70); EOSINOPHILS % (AUTO) 2.1 % (0.0-8.0); IMMATURE GRANULOCYTE ABSOLUTE 0.02 K/uL (0-1); LYMPHOCYTES # (AUTO) 2.6 K/uL (1.0-4.8); LYMPHOCYTES % (AUTO) 34.7 % (21.0-51.0); MEAN CORPUSCULAR HEMOGLOBIN 28.8 pg (27.0-33.0); MEAN CORPUSCULAR HGB CONC 32.8 g/dL (32.0-36.0); MEAN CORPUSCULAR VOLUME 87.8 fL (79-99); MONOCYTES # (AUTO) 0.7 K/uL (0.1-1.0); MONOCYTES % (AUTO) 8.6 % (3.0-13.0); NEUTROPHILS # (AUTO) 4.1 K/uL (1.8-7.7); PLATELET COUNT (AUTO) 186 K/uL (130-400); RED BLOOD CELL COUNT(AUTO) 4.44 MIL/uL (4.00-5.50); WHITE BLOOD COUNT (AUTO) 7.6 K/uL (4.8-10.8)
[2024-10-23 05:10] LABS: CREATININE 0.8 mg/dL (0.5-1.0); MAGNESIUM 2.1 mg/dL (1.80-2.40); POTASSIUM 3.9 mmol/L (3.5-5.1)
--- NOTE | 2024-10-23 14:00 | PN ---
[facility] PROGRESS NOTE Date of Service: Oct 23, 2024 Time of Service: 13:59 SUBJECTIVE: [ ] 10/22/24 Patient seen and examined/feels slightly better/needed zofran/will change Zosyn to Merrem 10/23/24 patient seen examined continues to feel better/tolerating IV Merrem. Denies any side effects. Continue current care labs reviewed REVIEW OF SYSTEMS CONSTITUTIONAL: Denies fevers, chills, or night sweats. No unintentional weight loss reported. NEUROLOGICAL: Denies headache, amaurosis fugax, motor weakness, sensory deficit, vertigo/spinning sensation, gait abnormalities, or tremors. ENT: No hearing loss, otalgia, otorrhea, rhinitis, rhinorrhea, hoarseness, or sore throat. CARDIOVASCULAR: Denies any exertional angina, dyspnea on exertion, orthopnea, paroxysmal nocturnal dyspnea, palpitations, life-threatening arrhythmias, claudication. PULMONARY: Denies any shortness of breath, cough, phlegm/sputum, hemoptysis, pleuritic chest pain. SLEEP: Denies morning headaches, daytime somnolence or napping. Denies difficulty falling asleep, staying asleep, waking from sleep. Denies knowledge of snoring. GASTROINTESTINAL: Denies any type of dysphagia to either liquids or solids. Denies nausea, vomiting, pyrosis, early satiety, abdominal pain, diarrhea, constipation, or changes in stool consistency or caliber. Denies coffee-ground emesis, hematemesis, hematochezia, or melanotic stools. GENITOURINARY: Denies frequency, urgency, nocturia, hematuria or incontinence (Storage/Irritative symptoms.) Low urinary stream, straining to void, urinary intermittency or hesitancy, splitting of the voiding stream, terminal dribbling. ENDOCRINOLOGIC: Denies polyuria, polydipsia, polyphagia or heat/cold intolerances. HEMATOLOGIC: Denies thrombophilia/previous clots, or coagulopathy/bleeding disorders. ONCOLOGIC: Denies personal history of malignancy. DERMATOLOGIC: Denies rashes or pruritus. PSYCHIATRIC: Denies any suicidal or homicidal ideation. Denies hallucinations. PHYSICAL EXAM GENERAL APPEARANCE: The patient is awake, alert, and oriented, in no acute cardiopulmonary distress. NEUROLOGICAL: Cranial nerves II-XII grossly intact. Motor is 5/5 in bilateral upper and lower extremities proximal to distal. No sensory deficits. HEENT: Face is symmetric. Pupils are equal and reactive. Extraocular movements are intact. NECK: Supple. No JVD. No thyromegaly. No submental, submandibular, pre-/po stauricular, occipital or supraclavicular lymphadenopathy. CHEST: Normal chest expansion. No Telemetry. LUNGS: Absence of any rales, rhonchi or any wheezing. CARDIOVASCULAR: Regular. S1 and S2 normal. No appreciable rubs, murmurs or gallops. ABDOMEN: Soft, nontender, and nondistended. There is no rebound, voluntary guarding, or rigidity. : Deferred. No Mcdaniel. EXTREMITIES: Non-edematous and not cyanotic. No clubbing. Good capillary refill. SKIN: No skin breakdown. Vital Signs (last 8hr) Date Time Temp Pulse Resp B/P (MAP) Pulse Ox O2 Delivery O2 Flow Rate FiO2 10/23/24 12:00 98.1 104 18 131/91 99 Room Air 10/23/24 08:00 98 Room Air* 0 21 10/23/24 08:00 97.7 80 16 130/75 98 Room Air LABS: Laboratory: Test 10/23/24 03:48 10/22/24 10:03 10/22/24 05:20 10/21/24 23:38 Range/Units White Blood Count 7.6 4.8-10.8 K/uL Red Blood Count 4.44 4.00-5.50 MIL/uL Hemoglobin 12.8 12.0-16.0 g/dL Hematocrit 39.0 36-48 % Mean Corpuscular Volume 87.8 79-99 fL Mean Corpuscular Hemoglobin 28.8 27.0-33.0 pg Mean Corpuscular Hemoglobin Concent 32.8 32.0-36.0 g/dL Red Cell Distribution Width 12.0 11.0-15.5 % Platelet Count 186 130-400 K/uL Mean Platelet Volume 9.6 7.5-10.5 fL Immature Granulocyte % (Auto) 0.3 0-1 % Neutrophils (%) (Auto) 54.0 40.0-77.0 % Lymphocytes (%) (Auto) 34.7 21.0-51.0 % Monocytes (%) (Auto) 8.6 3.0-13.0 % Eosinophils (%) (Auto) 2.1 0.0-8.0 % Basophils (%) (Auto) 0.3 0.0-5.0 % Neutrophils # (Auto) 4.1 1.8-7.7 K/uL Lymphocytes # (Auto) 2.6 1.0-4.8 K/uL Monocytes # (Auto) 0.7 0.1-1.0 K/uL Eosinophils # (Auto) 0.16 0.00-0.70 K/uL Basophils # (Auto) 0.02 0.00-0.20 K/uL Absolute Immature Granulocyte (auto 0.02 0-1 K/uL Nucleated Red Blood Cells 0.0 0.0-0.19 % Sodium Level 140 136-145 mmol/L Potassium Level 3.9 3.5-5.1 mmol/L Chloride Level 103 101-111 mmol/L Carbon Dioxide Level 30 21-32 mmol/L Blood Urea Nitrogen 12 7-18 mg/dL Creatinine 0.8 0.5-1.0 mg/dL Glomerular Filtration Rate Calc 82 >90 mL/min Random Glucose 104 70-105 mg/dL Total Calcium 9.3 8.5-10.1 mg/dL Magnesium Level 2.10 1.80-2.40 mg/dL Urine Color COLORLESS YELLOW Urine Appearance CLEAR CLEAR Urine pH 6.5 5.0-8.0 Urine Specific [place] 1.009 1.001-1.031 Urine Protein NEGATIVE NEGATIVE mg/dL Urine Glucose (UA) NEGATIVE NEGATIVE mg/dL Urine Ketones NEGATIVE NEGATIVE mg/dL Urine Occult Blood NEGATIVE NEGATIVE Urine Nitrate NEGATIVE NEGATIVE Urine Bilirubin NEGATIVE NEGATIVE mg/dL Urine Urobilinogen 0.2 0.2-1.0 mg/dL Urine Leukocyte Esterase 75 H NEGATIVE Jose Angel/uL Urine RBC 0-1 0-1 /HPF Urine WBC 6-10 H 0-1 /HPF Urine Squamous Epithelial Cells RARE 0-2 /HPF Urine Bacteria RARE None Seen /HPF Phosphorus Level 3.3 2.5-4.9 mg/dL Influenza Type A Antigen Negative For Type A NEGATIVE Influenza Type B Antigen Negative For Type B NEGATIVE SARS-CoV-2, RNA, NAAT NEGATIVE SARS CoV-2 NEGATIVE Test 10/21/24 23:30 Range/Units Lactic Acid Level 1.3 0.8-2.5 mmol/L Total Bilirubin 0.5 0.2-1.0 mg/dL Direct Bilirubin 0.1 0.0-0.3 mg/dL Aspartate Amino Transf (AST/SGOT) 17 10-37 U/L Alanine Aminotransferase (ALT/SGPT) 31 12-78 U/L Alkaline Phosphatase 83 50-136 U/L Troponin I High Sensitivity 4 4-50 ng/L B-Type Natriuretic Peptide < 5 0-100 pg/mL Total Protein 7.7 6.0-8.3 g/dL Albumin 4.0 3.5-5.0 g/dL Current Medications Medications (Trade) Dose Ordered Sig/Timoteo Route PRN Reason Start Time Stop Time Status Last Admin Dose Admin Acetaminophen (TYLenol 325MG TAB) 650 mg Q6H PRN PO TEMPERATURE GREATER THAN 101.5 10/22/24 04:00 11/21/24 03:59 Atorvastatin Calcium (LIPItor 40MG) 40 mg HS PO 10/22/24 21:00 11/21/24 20:59 Enoxaparin Sodium (Lovenox) 40 mg DAILY SQ 10/22/24 09:00 11/21/24 08:59 Famotidine (Pepcid 20mg Tab) 20 mg DAILY PO 10/22/24 09:00 11/21/24 08:59 10/23/24 08:43 20 MG Hydralazine HCl (APRESOLine 20MG INJ) 10 mg Q6H PRN IV For:SBP above 160;DBP above 90 10/22/24 04:00 11/21/24 03:59 Magnesium Sulfate 50 ml @ 0 mls/hr PROTOCOL PRN IV mag 10/22/24 09:30 11/21/24 09:29 Meropenem (Merrem 1gm) 1 gm Q8H IVPB 10/22/24 12:00 11/01/24 11:59 10/23/24 12:30 1 GM Morphine Sulfate (morPHINE 2MG SYG) 2 mg Q4H PRN IVP SEVERE PAIN (7-10) 10/22/24 04:30 10/29/24 04:29 Ondansetron HCl (zoFRAN 4MG INJ) 4 mg Q6H PRN IV NAUSEA/VOMITING 10/22/24 04:00 11/21/24 03:59 10/22/24 10:22 4 MG Pharmacy Profile Note (Pharmacy Communication) 1 each ONCE MISC 10/22/24 12:00 10/22/24 11:38 DC Piperacillin Sod/ Tazobactam Sod (Zosyn 3.375gm+NS 50ml) 3.375 gm Q8H IVPB 10/22/24 10:00 10/22/24 11:37 DC Sodium Chloride (NS 50ml) 50 ml AD IV 10/22/24 04:00 10/22/24 09:21 DC DIAGNOSTICS / RADIOLOGY: [ ] ASSESSMENT: [ ] PLAN: [ ] JENNIE CARRASQUILLO MD Oct 23, 2024 14:00
[2024-10-23] MEDS: ALPRAZolam 0.25 MG TABLET PO PRN (19:28)
[2024-10-24] VITALS (7 sets, daily range): BP systolic 117–144; BP diastolic 69–89; PULSE 85–93; RESP 18–20; TEMP 97.8–98.4; O2SAT 98
--- NOTE | 2024-10-24 07:08 | NUR ---
REPORT GIVEN TO NURSE CLARA RN PT STABLE, VS STABLE WILL CONT TO MONITOR
--- NOTE | 2024-10-24 11:49 | PN ---
[facility] PROGRESS NOTE Date of Service: Oct 24, 2024 Time of Service: 11:36 SUBJECTIVE: Ms. Weston is a 64-year-old female that was seen and examined today on 10/22/2024. Patient is a good historian of personal health. As per previous admission patient's Aroldo is at bedside. According to patient she came to the emergency department with a chief complaint of congestion. Onset was 1900. Location was to nose. Duration is on and off. Character is described as I have any stuffy nose. There was no alleviating factors. The patient believes symptoms may have been aggravated by levofloxacin which she took secondary to a urinary tract infection diagnosed in the outpatient setting by her PCP. Patient has a culture and sensitivity report in her hands from the outpatient setting that shows Klebsiella pneumonia ESBL resistant to PCN, cephalosporins, aztreonam. Organism is also resistant to Bactrim. Intermediate resistance to nitrofurantoin. For this reason emergency room physician recommended patient be admitted with a diagnosis of complicated UTI. There is sensitivity to levofloxacin 10/22/24 Patient seen and examined/feels slightly better/needed zofran/will change Zosyn to Merrem 10/23/24 patient seen examined continues to feel better/tolerating IV Merrem. Denies any side effects. Continue current care labs reviewed 10/24/2024 - patient is seen in room 412, patient is hemodynamically stable and asymptomatic, patient labs are acceptable. Discussed with the patient regarding the plan for discharge. Plan to discharge the patient tomorrow. Changed the nausea medication to promethazine as Zofran is not helping. Urine culture did not grow anything in last 36-48 hours. Levaquin will be started today . REVIEW OF SYSTEMS CONSTITUTIONAL: Denies fevers, chills, or night sweats. No unintentional weight loss reported. NEUROLOGICAL: Denies headache, amaurosis fugax, motor weakness, sensory deficit, vertigo/spinning sensation, gait abnormalities, or tremors. ENT: No hearing loss, otalgia, otorrhea, rhinitis, rhinorrhea, hoarseness, or sore throat. CARDIOVASCULAR: Denies any exertional angina, dyspnea on exertion, orthopnea, paroxysmal nocturnal dyspnea, palpitations, life-threatening arrhythmias, claudication. PULMONARY: Denies any shortness of breath, cough, phlegm/sputum, hemoptysis, pleuritic chest pain. SLEEP: Denies morning headaches, daytime somnolence or napping. Denies difficulty falling asleep, staying asleep, waking from sleep. Denies knowledge of snoring. GASTROINTESTINAL: Denies any type of dysphagia to either liquids or solids. Denies nausea, vomiting, pyrosis, early satiety, abdominal pain, diarrhea, constipation, or changes in stool consistency or caliber. Denies coffee-ground emesis, hematemesis, hematochezia, or melanotic stools. GENITOURINARY: Denies frequency, urgency, nocturia, hematuria or incontinence (Storage/Irritative symptoms.) Low urinary stream, straining to void, urinary intermittency or hesitancy, splitting of the voiding stream, terminal dribbling. ENDOCRINOLOGIC: Denies polyuria, polydipsia, polyphagia or heat/cold intolerances. HEMATOLOGIC: Denies thrombophilia/previous clots, or coagulopathy/bleeding disorders. ONCOLOGIC: Denies personal history of malignancy. DERMATOLOGIC: Denies rashes or pruritus. PSYCHIATRIC: Denies any suicidal or homicidal ideation. Denies hallucinations. PHYSICAL EXAM GENERAL APPEARANCE: The patient is awake, alert, and oriented, in no acute cardiopulmonary distress. NEUROLOGICAL: Cranial nerves II-XII grossly intact. Motor is 5/5 in bilateral upper and lower extremities proximal to distal. No sensory deficits. HEENT: Face is symmetric. Pupils are equal and reactive. Extraocular movements are intact. NECK: Supple. No JVD. No thyromegaly. No submental, submandibular, pre- /postauricular, occipital or supraclavicular lymphadenopathy. CHEST: Normal chest expansion. No Telemetry. LUNGS: Absence of any rales, rhonchi or any wheezing. CARDIOVASCULAR: Regular. S1 and S2 normal. No appreciable rubs, murmurs or gallops. ABDOMEN: Soft, nontender, and nondistended. There is no rebound, voluntary guarding, or rigidity. : Deferred. No Mcdaniel. EXTREMITIES: Non-edematous and not cyanotic. No clubbing. Good capillary refill. SKIN: No skin breakdown. Vital Signs (last 8hr) Date Time Temp Pulse Resp B/P (MAP) Pulse Ox O2 Delivery O2 Flow Rate FiO2 10/24/24 08:15 97.9 93 18 124/80 98 Room Air 10/24/24 04:00 97.9 85 20 117/69 96 Room Air LABS: Laboratory: Test 10/23/24 03:48 Range/Units White Blood Count 7.6 4.8-10.8 K/uL Red Blood Count 4.44 4.00-5.50 MIL/uL Hemoglobin 12.8 12.0-16.0 g/dL Hematocrit 39.0 36-48 % Mean Corpuscular Volume 87.8 79-99 fL Mean Corpuscular Hemoglobin 28.8 27.0-33.0 pg Mean Corpuscular Hemoglobin Concent 32.8 32.0-36.0 g/dL Red Cell Distribution Width 12.0 11.0-15.5 % Platelet Count 186 130-400 K/uL Mean Platelet Volume 9.6 7.5-10.5 fL Immature Granulocyte % (Auto) 0.3 0-1 % Neutrophils (%) (Auto) 54.0 40.0-77.0 % Lymphocytes (%) (Auto) 34.7 21.0-51.0 % Monocytes (%) (Auto) 8.6 3.0-13.0 % Eosinophils (%) (Auto) 2.1 0.0-8.0 % Basophils (%) (Auto) 0.3 0.0-5.0 % Neutrophils # (Auto) 4.1 1.8-7.7 K/uL Lymphocytes # (Auto) 2.6 1.0-4.8 K/uL Monocytes # (Auto) 0.7 0.1-1.0 K/uL Eosinophils # (Auto) 0.16 0.00-0.70 K/uL Basophils # (Auto) 0.02 0.00-0.20 K/uL Absolute Immature Granulocyte (auto 0.02 0-1 K/uL Nucleated Red Blood Cells 0.0 0.0-0.19 % Sodium Level 140 136-145 mmol/L Potassium Level 3.9 3.5-5.1 mmol/L Chloride Level 103 101-111 mmol/L Carbon Dioxide Level 30 21-32 mmol/L Blood Urea Nitrogen 12 7-18 mg/dL Creatinine 0.8 0.5-1.0 mg/dL Glomerular Filtration Rate Calc 82 >90 mL/min Random Glucose 104 70-105 mg/dL Total Calcium 9.3 8.5-10.1 mg/dL Magnesium Level 2.10 1.80-2.40 mg/dL Current Medications Medications (Trade) Dose Ordered Sig/Timoteo Route PRN Reason Start Time Stop Time Status Last Admin Dose Admin Acetaminophen (TYLenol 325MG TAB) 650 mg Q6H PRN PO TEMPERATURE GREATER THAN 101.5 10/22/24 04:00 11/21/24 03:59 Alprazolam (XANax 0.25MG) 0.25 mg Q4H PRN PO ANXIETY 10/23/24 14:30 11/22/24 14:29 10/23/24 19:28 0.25 MG Atorvastatin Calcium (LIPItor 40MG) 40 mg HS PO 10/22/24 21:00 11/21/24 20:59 10/23/24 20:27 40 MG Enoxaparin Sodium (Lovenox) 40 mg DAILY SQ 10/22/24 09:00 11/21/24 08:59 Famotidine (Pepcid 20mg Tab) 20 mg DAILY PO 10/22/24 09:00 11/21/24 08:59 10/24/24 09:35 20 MG Hydralazine HCl (APRESOLine 20MG INJ) 10 mg Q6H PRN IV For:SBP above 160;DBP above 90 10/22/24 04:00 11/21/24 03:59 Magnesium Sulfate 50 ml @ 0 mls/hr PROTOCOL PRN IV mag 10/22/24 09:30 11/21/24 09:29 Meropenem (Merrem 1gm) 1 gm Q8H IVPB 10/22/24 12:00 11/01/24 11:59 10/23/24 20:27 1 GM Morphine Sulfate (morPHINE 2MG SYG) 2 mg Q4H PRN IVP SEVERE PAIN (7-10) 10/22/24 04:30 10/29/24 04:29 Ondansetron HCl (zoFRAN 4MG INJ) 4 mg Q6H PRN IV NAUSEA/VOMITING 10/22/24 04:00 11/21/24 03:59 10/22/24 10:22 4 MG Pharmacy Profile Note (Pharmacy Communication) 1 each ONCE MISC 10/22/24 12:00 10/22/24 11:38 DC Piperacillin Sod/ Tazobactam Sod (Zosyn 3.375gm+NS 50ml) 3.375 gm Q8H IVPB 10/22/24 10:00 10/22/24 11:37 DC Sodium Chloride (NS 50ml) 50 ml AD IV 10/22/24 04:00 10/22/24 09:21 DC DIAGNOSTICS / RADIOLOGY: [ ] ASSESSMENT: Recurrent UTI POA Klebsiella pneumoniae ESBL UTI POA Nonobstructing Nephrolithiasis POA Hepatic cyst POA Hypertension POA Hyperlipidemia POA Physiological insomnia POA PLAN: Recurrent UTI, Klebsiella pneumoniae, nephrolithiasis Continue antibiotic medication Improve rehydration and advised the patient to drink more water Continue home medications Monitor vitals P.r.n. medications as needed Urine culture shows no growth in 36 to 48 hours Plan to discharge the patient once we start levofloxacin and see if patient can tolerate. Hypertension, hyperlipidemia Continue home medications Monitor blood pressure Physiologic insomnia Continue Xanax as needed and as scheduled only Placed Lovenox for DVT prophylaxis but patient effusion GI prophylaxis with famotidine Plan to discharge the patient tomorrow after starting levofloxacin with meropenem tonight. As patient tolerates levofloxacin discontinue meropenem and discharge tomorrow. ATTESTATION BY PHYSICIAN I have seen and examined the patient. I reviewed the documentation, medical decision making, and treatment plan as noted by the resident provider above. I agree with the findings and plan of care. Wilbert Khan MD, KEERTI K MD Oct 24, 2024 11:49
[2024-10-24] MEDS ORDERED: PROMETHAZINE HCL 25 MG TABLET PO PRN (14:30)
[2024-10-24] MEDS: levoFLOXacin 750 MG TABLET ONE (21:38)
[2024-10-24] MEDS: levoFLOXacin 750 MG TABLET PO SCH (21:38)
[2024-10-24] MEDS: acetaMINOPHEN 325 MG TAB PO PRN (23:01)
[2024-10-25] VITALS: BP 130/86; PULSE 94; RESP 18; TEMP 98
[2024-10-25 04:00] VITALS: BP 125/72; PULSE 96; RESP 18; TEMP 97.8
[2024-10-25 05:07] LABS: BASOPHILS # (AUTO) 0.02 K/uL (0.00-0.20); BASOPHILS % (AUTO) 0.3 % (0.0-5.0); EOSINOPHILS # (AUTO) 0.25 K/uL (0.00-0.70); EOSINOPHILS % (AUTO) 3.4 % (0.0-8.0); HEMATOCRIT 38.5 % (36-48); IMMATURE GRANULOCYTE ABSOLUTE 0.02 K/uL (0-1); LYMPHOCYTES # (AUTO) 2.4 K/uL (1.0-4.8); LYMPHOCYTES % (AUTO) 33.2 % (21.0-51.0); MEAN CORPUSCULAR HEMOGLOBIN 28.9 pg (27.0-33.0); MEAN CORPUSCULAR HGB CONC 33.2 g/dL (32.0-36.0); MEAN CORPUSCULAR VOLUME 86.9 fL (79-99); MONOCYTES # (AUTO) 0.6 K/uL (0.1-1.0); MONOCYTES % (AUTO) 7.9 % (3.0-13.0); NEUTROPHILS # (AUTO) 4.1 K/uL (1.8-7.7); NEUTROPHILS % (AUTO) 54.9 % (40.0-77.0); PLATELET COUNT (AUTO) 172 K/uL (130-400); RED BLOOD CELL COUNT(AUTO) 4.43 MIL/uL (4.00-5.50); WHITE BLOOD COUNT (AUTO) 7.4 K/uL (4.8-10.8)
[2024-10-25 05:21] LABS: CREATININE 0.6 mg/dL (0.5-1.0); POTASSIUM 3.5 mmol/L (3.5-5.1)
[2024-10-25 08:00] VITALS: O2SAT 100
[2024-10-25 08:09] VITALS: BP 130/80; PULSE 93; RESP 20; TEMP 98.4
[2024-10-25] MEDS ORDERED: LEVO750T68 PO (08:24)
[2024-10-25] MEDS ORDERED: PROM25TA7 PO (08:24)
--- NOTE | 2024-10-25 08:29 | DS ---
Discharge Summary Hospital Course Summary: Ms. Weston is a 64-year-old female came to the emergency department with a chief complaint of severe nasal congestion. There was no alleviating factors. The patient believes symptoms may have been aggravated by levofloxacin which she took secondary to a urinary tract infection diagnosed in the outpatient setting by her PCP. Patient has a culture and sensitivity report in her hands from the outpatient setting that shows Klebsiella pneumonia ESBL resistant to PCN, cephalosporins, aztreonam. Organism is also resistant to Bactrim. Intermediate resistance to nitrofurantoin. For this reason emergency room physician recommended patient be admitted with a diagnosis of complicated UTI. There is sensitivity to levofloxacin 10/22/24 Patient seen and examined/feels slightly better/needed zofran/will change Zosyn to Merrem 10/23/24 patient seen examined continues to feel better/tolerating IV Merrem. Denies any side effects. Continue current care labs reviewed 10/24/2024 - patient is seen in room 412, patient is hemodynamically stable and asymptomatic, patient labs are acceptable. Discussed with the patient regarding the plan for discharge. Plan to discharge the patient tomorrow. Changed the nausea medication to promethazine as Zofran is not helping. Urine culture did not grow anything in last 36-48 hours. Levaquin will be started today . 10/25/2024 - patient took levofloxacin with no adverse reactions patient is deemed stable for discharge and will be discharged with 2 weeks of levofloxacin. Advised the patient to follow up with Gastroenterology for the further evaluation of hepatic cyst, follow up with Urology due to recurrent stones and recurrent UTIs. Patient also informed about intractable nausea and requested medication. Procedure(s): PATIENT: TATIANA WESTON MR#: [id number] : 1960 SEX: F AGE: 64 LOCATION: [facility] ORDER STATUS: ADM IN REPORT#: [id number] SERVICE REASON: kidney stone, suprapubid pain, right flank pain ORDERING PHYSICIAN: JANETTE DENNIS NP PROCEDURE: ABD PEL WO - CT ABDOMEN/PELVIS W/O CONTRAST CT ABDOMEN/PELVIS W/O CONTRAST HISTORY: Renal stone COMPARISON: None TECHNIQUE: Multiple sequential axial images of the abdomen and pelvis were obtained from the dome of the diaphragm through symphysis pubis. Patient was not given contrast through intravenous route. Oral contrast was not given. FINDINGS: No pleural effusion is seen bilaterally. There is no evidence of parenchymal disease or pulmonary nodule of the visualized lower lungs. Degenerative changes of the thoracolumbar spine are present. The heart is not enlarged. Coronary artery calcifications are seen. There is grade 2 anterolisthesis at L5-S1 level with disc space narrowing. Liver measures 18 cm. Multiple hepatic cysts is seen with the largest measuring 3.3 cm in the right hepatic lobe. The liver, spleen, adrenal glands and pancreas are unremarkable. There is no evidence of hydronephrosis bilaterally. There is 5 mm right renal pelvis stone. Fecal material is seen in the colon. There are normal size retroperitoneal and mesenteric lymph nodes. No ascites is seen. No CT evidence of acute appendicitis is seen. Pelvic sidewalls are symmetric bilaterally. The bladder is poorly distended. IMPRESSION: 1. No hydronephrosis. 5 mm right renal pelvic stone. No ascites. Hepatic cysts. CT was performed with one or more following dose reduction techniques: automated exposure control, adjustment of the mA and kv according to patient's size, or use of a iterative reconstruction technique. DICTATED BY: ASYA CAMACHO MD DATE: 10/22/24 0546 ELECTRONICALLY SIGNED BY: ASYA CAMACHO MD DATE: 10/22/24 0554 Assessment/Plan: ASSESSMENT: Recurrent UTI POA Klebsiella pneumoniae ESBL UTI POA Nonobstructing Nephrolithiasis POA Hepatic cyst POA Hypertension POA Hyperlipidemia POA Physiological insomnia POA Intractable nausea POA Discharge Instructions: Take the full course of antibiotics as prescribed Take pain medication as needed Drink at least 2-3 L of fluids per day Follow up with Urology in 1-2 weeks for further evaluation of kidney stones and discuss long-term stone prevention Follow up with primary care for repeat urine studies and to ensure infection has resolved Follow up with Gastroenterology in 1-2 weeks regarding the newly diagnosed hepatic cysts Come back to the ED few face any acute or severe symptoms Home Medications: Reported Medications Docusate Sodium (Docusate Sodium) 100 Mg Tablet, 0.5 TAB PO HS for 30 Days, #60 TAB 0 Refills 10/22/24 Sennosides (Senna) 8.6 Mg Tablet, 2 TAB PO DAILY for constipation for 25 Days, #100 TAB 0 Refills 10/22/24 Famotidine (Famotidine) 20 Mg Tablet, 1 TAB PO BID for 30 Days, #60 TAB 0 Refills 10/22/24 Fexofenadine HCl (Anna Allergy) 180 Mg Tablet, 1 TAB PO DAILY for allergy symptoms for 14 Days, #14 TAB 0 Refills 10/22/24 Tamsulosin HCl (Flomax) 0.4 Mg Cap.er.24h, 1 CAP PO HS for 30 Days, #30 CAP 0 Refills 10/22/24 Metoprolol Succinate (Metoprolol Succinate) 50 Mg Tab.er.24h, 1 TAB PO HS for 30 Days, #30 TAB 0 Refills 10/22/24 Metoprolol Succinate (Metoprolol Succinate) 50 Mg Tab.er.24h, 1 TAB PO DAILY for 30 Days, #30 TAB 0 Refills 10/22/24 Evolocumab (Repatha Sureclick) 140 Mg/Ml Pen.injctr, 140 MG SQ [id number] 02/12/24 Levalbuterol Tartrate (Xopenex Hfa) 45 Mcg/Actuation Hfa.aer.ad, 2 PUFF IH AD PRN for ASTHMA 02/12/24 Tirzepatide (Mounjaro) 15 Mg/0.5 Ml Pen.injctr, 15 MG SQ QWEEK 02/12/24 Montelukast Sodium (Montelukast Sodium) 10 Mg Tablet, 10 MG PO HS, TAB 03/11/23 Rosuvastatin Calcium (Rosuvastatin Calcium) 20 Mg Tablet, 10 MG PO AM, TAB 03/11/23 Cetirizine HCl (Zyrtec) 10 Mg Tablet, 10 MG PO HS, TAB 03/11/23 Discontinued Reported Medications Docusate Sodium (Docusate Sodium) 100 Mg Capsule, 1 CAP PO BID for constipation for 7 Days, #14 CAP 0 Refills 10/22/24 Metoprolol Succinate (Metoprolol Succinate) 100 Mg Tab.er.24h, 100 MG PO AM, TAB 02/12/24 Metoprolol Succinate (Metoprolol Succinate) 25 Mg Tab.er.24h, 50 MG PO HS, TAB 03/11/23 Discontinued Scripts Midodrine HCl (Midodrine HCl) 5 Mg Tablet, 1 TAB PO TID for 30 Days, #90 TAB 1 Refill Prov:RE PACE MD 09/26/24 Cefdinir (Cefdinir) 300 Mg Capsule, 1 CAP PO BID for 7 Days, #14 CAP 1 Refill Prov:RE PACE MD 09/26/24 Tamsulosin HCl (Flomax) 0.4 Mg Cap.er.24h, 0.4 MG PO DAILY for 30 Days, #30 CAPSULE.DR Prov:SUMAN TABOR MD 02/09/24 New Medications: Levofloxacin (Levaquin 750Mg Tabs) 750 Mg Tablet 750 MG PO DAILY, #13 TAB Promethazine HCl (Promethazine HCl) 25 Mg Tablet 12.5 MG PO Q6H PRN for NAUSEA/VOMITING, #30 TAB Continued Medications: Cetirizine HCl (Zyrtec) 10 Mg Tablet 10 MG PO HS, TAB Docusate Sodium (Docusate Sodium) 100 Mg Tablet 0.5 TAB PO HS for 30 Days, #60 TAB 0 Refills Evolocumab (Repatha Sureclick) 140 Mg/Ml Pen.injctr 140 MG SQ [id number] Famotidine (Famotidine) 20 Mg Tablet 1 TAB PO BID for 30 Days, #60 TAB 0 Refills Fexofenadine HCl (Anna Allergy) 180 Mg Tablet 1 TAB PO DAILY for allergy symptoms for 14 Days, #14 TAB 0 Refills Levalbuterol Tartrate (Xopenex Hfa) 45 Mcg/Actuation Hfa.aer.ad 2 PUFF IH AD PRN for ASTHMA Metoprolol Succinate (Metoprolol Succinate) 50 Mg Tab.er.24h 1 TAB PO DAILY for 30 Days, #30 TAB 0 Refills Metoprolol Succinate (Metoprolol Succinate) 50 Mg Tab.er.24h 1 TAB PO HS for 30 Days, #30 TAB 0 Refills Montelukast Sodium (Montelukast Sodium) 10 Mg Tablet 10 MG PO HS, TAB Rosuvastatin Calcium (Rosuvastatin Calcium) 20 Mg Tablet 10 MG PO AM, TAB Sennosides (Senna) 8.6 Mg Tablet 2 TAB PO DAILY for constipation for 25 Days, #100 TAB 0 Refills Tamsulosin HCl (Flomax) 0.4 Mg Cap.er.24h 1 CAP PO HS for 30 Days, #30 CAP 0 Refills Tirzepatide (Mounjaro) 15 Mg/0.5 Ml Pen.injctr 15 MG SQ QWEEK Time spent arranging discharge: 1-30 minutes ATTESTATION BY PHYSICIAN I have seen and examined the patient. I reviewed the documentation, medical decision making, and treatment plan as noted by the resident provider above. I agree with the findings and plan of care. Wilbert Khan MD, KEERTI K MD Oct 25, 2024 08:29
--- NOTE | 2024-10-25 11:38 | NUR ---
DISCHARGE PT DISCHARGE EDUCATION GIVEN. IV CATHETER REMOVED AND INTACT. PT WHEELED DOWN VIA WHEEL CHAIR TO PRIVATE CAR. PT HAS NO FURTHER QUESTIONS OR COMPLAINTS. NO FURTHER NOTES.
--- NOTE | 2024-10-26 11:43 | NUR ---
Transitional Phone Call Spoke to patient, states "I'm doing well, woke up feeling refreshed." [facility] has her new prescriptions and taking home medications as instructed; no questions or concerns with medications. [facility] has scheduled a follow up appointment with PCP - Charleen Burrell; has a follow up appointment scheduled in [place] due to her moving at [facility] on 02/14/2025; and will schedule a follow up appointment with GI in [place] once her moving is completed. Patient requests all the medical records recent to past visits; referred to medical records and transferred. No questions or concerns at this time.
== END 2024-10-25 11:30 | disposition home or self-care (01) | DRG 690 ==
LOC: EDH 22:42 → EDHIP 10-22 03:35 → 4BH 10-22 04:30
PROVIDERS: ADMIT Internal Medicine; ATTEND Internal Medicine
DX: N39.0 Urinary tract infection, site not specified (principal); Z16.11 Resistance to penicillins; Z16.12 Extended spectrum beta lactamase (ESBL) resistance; B96.1 Klebsiella pneumoniae [K. pneumoniae] as the cause of diseases classified elsewhere; E11.9 Type 2 diabetes mellitus without complications; E78.00 Pure hypercholesterolemia, unspecified; I10 Essential (primary) hypertension; N20.0 Calculus of kidney; Z20.822 Contact with and (suspected) exposure to COVID-19; G47.00 Insomnia, unspecified; J45.909 Unspecified asthma, uncomplicated; K76.89 Other specified diseases of liver; Z82.49 Family history of ischemic heart disease and other diseases of the circulatory system; Z79.899 Other long term (current) drug therapy; Z90.721 Acquired absence of ovaries, unilateral
CPT/HCPCS: 36415; 74176; 80048; 80076; 81001; 83605; 83735; 83880; 84100; 84484; 85025; 87040; 87086; 87635; 87804; 99285; G0378; J1650; J2185; J2405; J2543; J3475; J7030